=== PATIENT | male | born 1985 | race Caucasian/White ===

== ENCOUNTER 2017-07-15 16:31 | Emergency (ER) | payer MEDICAID, OTHER ==
[~2017-07-15] VITALS: Ht 170.2 cm; Wt 81.0 kg
[2017-07-15 17:14] VITALS: BP 159/99
== END 2017-07-16 00:06 | disposition left against medical advice (07) ==
LOC: ER 23:58
DX: Z53.21 Procedure and treatment not carried out due to patient leaving prior to being seen by health care provider (principal)

== ENCOUNTER 2017-07-16 09:21 | Emergency (ER) | payer MEDICAID, OTHER ==
[~2017-07-16] VITALS: Ht 167.6 cm; Wt 79.0 kg
[2017-07-16] MEDS ORDERED: KETOROLAC 60MG/2ML VIAL IM ONE (11:15)
[2017-07-16 11:21] VITALS: BP 145/105
== END 2017-07-16 12:39 | disposition home or self-care (01) ==
LOC: ER 10:31
DX: M25.562 Pain in left knee (principal); F12.10 Cannabis abuse, uncomplicated; F17.210 Nicotine dependence, cigarettes, uncomplicated; Z87.828 Personal history of other (healed) physical injury and trauma
CPT/HCPCS: 96372; 99283; J1885

== ENCOUNTER 2020-05-10 16:50 | Emergency (ER) | payer MEDICAID ==
[~2020-05-10] VITALS: Ht 177.8 cm; Wt 80.0 kg
[2020-05-10] MEDS ORDERED: AMOXICILLIN/POTASSIUM CLAVULANATE 875/125MG TAB PO ONE (18:15)
[2020-05-10] MEDS ORDERED: IBUPROFEN 600MG TABLET PO ONE (18:15)
[2020-05-10] MEDS ORDERED: TETANUS, DIPHTHERIA, PERTUSSIS VAC/PF 0.5ML (>7YR OLD) IM ONE (18:15)
[2020-05-10 19:14] VITALS: BP 153/102
== END 2020-05-10 19:16 | disposition home or self-care (01) ==
LOC: ER 16:50
DX: S61.451A Open bite of right hand, initial encounter (principal); W54.0XXA Bitten by dog, initial encounter; Y93.89 Activity, other specified; Y92.89 Other specified places as the place of occurrence of the external cause; Y99.8 Other external cause status; I10 Essential (primary) hypertension; F12.10 Cannabis abuse, uncomplicated
CPT/HCPCS: 73130; 90471; 90715; 99283

== ENCOUNTER 2024-11-27 12:26 | Emergency (ER) | payer SELFPAY ==
[~2024-11-27] VITALS: Ht 170.2 cm; Wt 87.0 kg
[2024-11-27 12:35] VITALS: BP 165/117; PULSE 116; RESP 18; TEMP 97.9; O2SAT 97
== END 2024-11-27 17:37 | disposition left against medical advice (07) ==
LOC: ER 13:18
DX: R07.81 Pleurodynia (principal); I10 Essential (primary) hypertension; Z98.890 Other specified postprocedural states; Z53.21 Procedure and treatment not carried out due to patient leaving prior to being seen by health care provider